=== PATIENT | female | born 1965 | race African-American/Black ===

== ENCOUNTER 2019-12-02 23:26 | Emergency (ER) | payer MEDICAID ==
[~2019-12-02] VITALS: Ht 165.1 cm; Wt 69.0 kg
[2019-12-03] MEDS ORDERED: PHENOBARBITAL 60MG TABLET PO ONE (04:45)
[2019-12-03] MEDS ORDERED: PHENYTOIN SODIUM EXTENDED 100MG CAPSULE PO ONE (04:45)
[2019-12-03 05:44] VITALS: BP 128/80
== END 2019-12-03 05:46 | disposition home or self-care (01) ==
LOC: ER 23:26
DX: R56.9 Unspecified convulsions (principal)
CPT/HCPCS: 36415; 80185; 99283

== ENCOUNTER 2021-04-26 01:25 | Emergency (ER) | payer MEDICAID ==
[~2021-04-26] VITALS: Ht 172.7 cm; Wt 72.0 kg
[2021-04-26] MEDS ORDERED: PHENOBARBITAL 60MG TABLET PO ONE (02:15)
[2021-04-26] MEDS ORDERED: PHENYTOIN SODIUM EXTENDED 100MG CAPSULE PO ONE (02:15)
[2021-04-26] MEDS ORDERED: PHEN100C4 MT (03:32)
[2021-04-26] MEDS ORDERED: PHEN30TA42 MT (03:32)
[2021-04-26 05:00] VITALS: BP 121/77
== END 2021-04-26 06:52 | disposition home or self-care (01) ==
LOC: ER 01:25
DX: G40.909 Epilepsy, unspecified, not intractable, without status epilepticus (principal); Z91.14 Patient's other noncompliance with medication regimen
CPT/HCPCS: 93005; 99283; Z7610

== ENCOUNTER 2023-10-18 09:21 | Emergency (ER) | payer MEDICAID ==
[~2023-10-18] VITALS: Ht 167.6 cm; Wt 67.0 kg
[~2023-10-18 09:21] MED LIST: PHEN100C4 MT
[2023-10-18 09:32] VITALS: BP 160/80; PULSE 100; RESP 16; O2SAT 100
[2023-10-20] MEDS ORDERED: PHEN32.46 PO (10:31)
[2023-10-20] MEDS ORDERED: PHEN100C4 PO (17:04)
[2023-10-21] MEDS ORDERED: CIPR-264 MT (12:55)
[2023-10-21] MEDS ORDERED: TRAZ-251 MT (21:31)
== END 2023-10-18 09:50 ==
LOC: ER 09:21
DX: Z00.00 Encounter for general adult medical examination without abnormal findings (principal); F20.9 Schizophrenia, unspecified
CPT/HCPCS: 99283